=== PATIENT | female | born 1945 | race Caucasian/White ===

== ENCOUNTER 2018-01-11 18:04 | Observation (INO) | payer MEDICARE, BC ==
[~2018-01-11] VITALS: Ht 167.6 cm; Wt 102.2 kg
[2018-01-11 18:35] VITALS: BP 152/87; PULSE 69; RESP 16; TEMP 98; O2SAT 96
--- NOTE | 2018-01-11 19:06 | RADRPT ---
EXAM DATE/TIME: 01/11/2018 18:45 [facility] COMPARISON: No previous studies available for comparison. INDICATIONS : Right 3rd digit pain; finger closed in window. MEDICAL HISTORY : None. SURGICAL HISTORY : None. ENCOUNTER: Initial ACUITY: 1 day PAIN SCORE: 10/10 LOCATION: Right 3rd digit. FINDINGS: Examination of the third digit of the right hand demonstrates comminuted fracture distal phalanx thir d finger. No dislocation. CONCLUSION: 1. Comminuted fracture distal phalanx right third finger. Ganesh Valero MD on January 11, 2018 at 19:01 Board Certified Radiologist. This report was verified electronically.
[2018-01-11] MEDS ORDERED: LISI-515 PO (20:06)
[2018-01-11] MEDS ORDERED: ATOR40TA16 PO (20:06)
[2018-01-11] MEDS ORDERED: ASPI-183 PO (20:06)
[2018-01-11] MEDS ORDERED: ZANT150T2 PO (20:06)
[2018-01-11] MEDS ORDERED: METO25TA3 PO (20:06)
[2018-01-11] MEDS ORDERED: LEVO.1 PO (20:06)
[2018-01-11] MEDS ORDERED: NITR0.4S SL (20:06)
[2018-01-11] MEDS ORDERED: LIDOCAINE HCL 1% PF 30 ML VIAL INFIL ONE (20:15)
[2018-01-11] MEDS ORDERED: TETANUS/DIPHTHERIA TOXOID ADULT 0.5 ML VIAL IM ONE (20:15)
[2018-01-11] MEDS ORDERED: BUPIVACAINE HCL PF 0.5% 10 ML VIAL INFIL ONE (20:15)
[2018-01-11] MEDS ORDERED: AMPICILLIN-SULBACTAM INJ 1,500 MG in SODIUM CHLORIDE 0.9% INJ 100 ML IV ONE (20:15)
[2018-01-11 21:06] LABS: AUTOMATED NEUTROPHIL # 5.4 TH/MM3 (1.8-7.7); BASOPHIL % 0.5 % (0.0-2.0); EOSINOPHIL # 0.1 TH/MM3 (0-0.4); EOSINOPHIL % 1.5 % (0.0-4.0); HEMATOCRIT 40.5 % (35.0-46.0); HEMOGLOBIN 13.6 GM/DL (11.6-15.3); LYMPH % 20.9 % (9.0-44.0); LYMPHOCYTE # 1.6 TH/MM3 (1.0-4.8); MEAN CELL VOLUME 88.8 FL (80.0-100.0); MEAN CORPUSCULAR HEMOGLOBIN 29.9 PG (27.0-34.0); MEAN CORPUSCULAR HGB CONC 33.7 % (32.0-36.0); MEAN PLATELET VOLUME 9.8 FL (7.0-11.0); MONOCYTE # 0.6 TH/MM3 (0-0.9); NEUT % 69.1 % (16.0-70.0); PLATELET COUNT 226 TH/MM3 (150-450); RED BLOOD COUNT 4.55 MIL/MM3 (4.00-5.30); RED CELL DISTRIBUTION WIDTH 13.3 % (11.6-17.2); WHITE BLOOD COUNT 7.9 TH/MM3 (4.0-11.0)
[2018-01-11 21:41] LABS: BICARBONATE 27.9 MEQ/L (21.0-32.0); CALCIUM 9.2 MG/DL (8.5-10.1); MAGNESIUM 2.1 MG/DL (1.5-2.5)
[2018-01-11 21:44] VITALS: BP 165/73; PULSE 60; RESP 18; TEMP 98; O2SAT 92
--- NOTE | 2018-01-11 21:44 | PD ---
HPI Chief Complaint: Laceration/Skin Injury Time Seen by Provider: 20:06 Travel History International Travel<30 days: No Contact w/Intl Traveler<30days: No Traveled to known affect area: No History of Present Illness HPI 72-year-old female presents to the ED for evaluation of injury and laceration to her right middle finger. Patient reports that this have been couple hours before coming. Patient she was getting some stuff out of the car when her was going to go bead picker something else and will her hand was on the window her close to window on her finger. She has been having pain and swelling in the dorsal distal aspect of the finger since. She has a significant cut and what appears to be bone showing. She states that her pain is 7 out of 10. She is unsure of her last tetanus booster. She has allergies to azithromycin and oxycodone. Patient denies any other injuries. Per patient he has bleeding and pain in the distal aspect of the finger. Denies any numbness, tingling, weakness. No prior injuries. No blood thinner use. PFSH Past Medical History Blood Disorders: Yes (PE IVC FILTER IN PLACE) Cardiac Catheterization: Yes High Cholesterol: Yes Diminished Hearing: No Hypertension: Yes Myocardial Infarction: Yes Thyroid Disease: Yes Influenza Vaccination: Yes : 2 Para: 2 Past Surgical History Abdominal Surgery: Yes (UMBILICAL HERNIA) Coronary Stent: Yes Hysterectomy: Yes (PARTIAL) Social History Alcohol Use: Yes (SOCIAL) Tobacco Use: No Substance Use: No Allergies-Medications (Allergen,Severity, Reaction): Coded Allergies: azithromycin (Verified Allergy, Unknown, cramps, 01/11/18) oxycodone (Verified Allergy, Unknown, hellucinations, 01/11/18) Reported Meds & Prescriptions Reported Meds & Active Scripts Active Reported Aspirin 325 Mg Tab 325 Mg PO DAILY Nitrostat SL (Nitroglycerin) 0.4 Mg Subl 0.4 Mg SL DIRECTED PRN 1 tablet under the tongue as needed for chest pain. Repeat every 5 minutes for a total of 3 DOSES or call 911 if NO relief. Synthroid (Levothyroxine Sodium) 100 Mcg Tab 100 Mcg PO DAILY Zantac (Ranitidine HCl) 150 Mg Tab 150 Mg PO BID Metoprolol Tartrate 25 Mg Tab 25 Mg PO BID Lisinopril 20 Mg Tab 20 Mg PO DAILY Atorvastatin (Atorvastatin Calcium) 40 Mg Tab 40 Mg PO HS Review of Systems Except as stated in HPI: all other systems reviewed are Neg Physical Exam Narrative GENERAL: SKIN: Warm and dry. HEAD: Atraumatic. Normocephalic. EYES: Pupils equal and round. No scleral icterus. No injection or drainage. ENT: No nasal bleeding or discharge. Mucous membranes pink and moist. Tongue is midline. No uvula deviation. NECK: Trachea midline. No JVD. CARDIOVASCULAR: Regular rate and rhythm. No murmurs, S3, S4. RESPIRATORY: No accessory muscle use. Clear to auscultation. Breath sounds equal bilaterally. GASTROINTESTINAL: Abdomen soft, non-tender, nondistended. Hepatic and splenic margins not palpable. MUSCULOSKELETAL: Extremities without clubbing, cyanosis, or edema. No obvious deformities. Full range of motion of the upper and lower extremities bilaterally. Patient does have obvious deformity to the distal aspect of the right middle finger. Patient has cut about 2 cm in the dorsal aspect of the finger with bone showing and now avulsed. Nail still attached however the levels of the level of the nailbed. Good capillary refill. Sensation appears to be intact. NEUROLOGICAL: Awake and alert. No obvious cranial nerve deficits. Motor grossly within normal limits. Five out of 5 muscle strength in the arms and legs. Normal speech. PSYCHIATRIC: Appropriate mood and affect; insight and judgment normal. Data Data Last Documented VS Vital Signs Date Time Temp Pulse Resp B/P (MAP) Pulse Ox O2 Delivery O2 Flow Rate FiO2 01/11/18 21:44 98.0 60 18 165/73 (103) 92 Room Air Orders Orders Finger ([id number]) (01/11/18 ) Ampicillin-Sulbactam Inj (Unasyn Inj) (01/11/18 20:15) Lidocaine Pf 1% Inj (Xylocaine-Mpf 1% In (01/11/18 20:15) Wound Care (01/11/18 20:12) Tetanus/Diphtheria Tox Adult (Tetanus/Di (01/11/18 20:15) Bupivacaine Pf 0.5% Inj (Marcaine Pf 0.5 (01/11/18 20:15) Complete Blood Count With Diff (01/11/18 20:35) Basic Metabolic Panel (Bmp) (01/11/18 20:35) Prothrombin Time / Inr (Pt) (01/11/18 20:35) Act Partial Throm Time (Ptt) (01/11/18 20:35) Magnesium (Mg) (01/11/18 20:35) Splint Or Brace Apply/Monitor (01/11/18 20:36) Consult Hand Surgery (01/11/18 ) Consent (01/11/18 20:38) Npo After Midnight W/ Po Meds (01/12/18 Breakfast) (Hub Use Only)Inp Phy Cons/Ref (01/11/18 ) Admit Order (Ed Use Only) (01/11/18 22:14) Labs Laboratory Tests Test 01/11/18 20:05 White Blood Count 7.9 TH/MM3 Red Blood Count 4.55 MIL/MM3 Hemoglobin 13.6 GM/DL Hematocrit 40.5 % Mean Corpuscular Volume 88.8 FL Mean Corpuscular Hemoglobin 29.9 PG Mean Corpuscular Hemoglobin Concent 33.7 % Red Cell Distribution Width 13.3 % Platelet Count 226 TH/MM3 Mean Platelet Volume 9.8 FL Neutrophils (%) (Auto) 69.1 % Lymphocytes (%) (Auto) 20.9 % Monocytes (%) (Auto) 8.0 % Eosinophils (%) (Auto) 1.5 % Basophils (%) (Auto) 0.5 % Neutrophils # (Auto) 5.4 TH/MM3 Lymphocytes # (Auto) 1.6 TH/MM3 Monocytes # (Auto) 0.6 TH/MM3 Eosinophils # (Auto) 0.1 TH/MM3 Basophils # (Auto) 0.0 TH/MM3 CBC Comment DIFF FINAL Differential Comment Prothrombin Time 10.0 SEC Prothromb Time International Ratio 1.0 RATIO Activated Partial Thromboplast Time 24.7 SEC Blood Urea Nitrogen 16 MG/DL Creatinine 1.00 MG/DL Random Glucose 150 MG/DL Calcium Level 9.2 MG/DL Magnesium Level 2.1 MG/DL Sodium Level 141 MEQ/L Potassium Level 4.2 MEQ/L Chloride Level 106 MEQ/L Carbon Dioxide Level 27.9 MEQ/L Anion Gap 7 MEQ/L Estimat Glomerular Filtration Rate 55 ML/MIN MDM Medical Decision Making Medical Screen Exam Complete: Yes Emergency Medical Condition: Yes Medical Record Reviewed: Yes Interpretation(s) Last Impressions Finger X-Ray 01/11/18 0000 Signed Impressions: Service Date/Time: January 18:45 - CONCLUSION: 1. Comminuted fracture distal phalanx right third finger. Ganesh Valero MD CBC & BMP Diagram 01/11/18 20:05 Calcium Level 9.2, Magnesium Level 2.1 coags WNL Differential Diagnosis Fracture versus laceration versus abrasion versus open fracture Narrative Course 72-year-old female that presents to the ED for evaluation of laceration to the right middle finger. Patient was properly examined and was found to have signs and symptoms consistent appears to be orbital fracture. X-ray was done and showed comminuted fracture of the distal phalanx. Case was discussed with Dr. Ovalle who recommends admission to medicine, splint and states that if needed to keep the nail in place. This was discussed with the patient and family who are in agreement with admission plan. Patient was started on Unasyn and given tetanus booster. Please refer to procedure note. Patient will be admitted to Dr. Ramos who agrees with plan. Diagnosis Primary Impression: Open fracture of finger of right hand Qualified Codes: S62.632B - Displaced fracture of distal phalanx of right middle finger, initial encounter for open fracture Admitting Information Admitting Physician Requests: Observation Tamir Norton Jan 11, 2018 21:44
[2018-01-11] MEDS ORDERED: ONDANSETRON HCL 4 MG/2 ML VIAL IVP PRN (22:30)
[2018-01-11] MEDS ORDERED: BISACODYL 10 MG SUPP RECTAL PRN (22:30)
[2018-01-11] MEDS ORDERED: MAGNESIUM HYDROXIDE SUSP 30 ML CUP PO PRN (22:30)
[2018-01-11] MEDS ORDERED: SODIUM CHLORIDE 0.9% FLUSH 10 ML FLUSH IV FLUSH PRN (22:30)
[2018-01-11] MEDS ORDERED: SENNOSIDES 8.6 MG TAB PO PRN (22:30)
[2018-01-11] MEDS ORDERED: NALOXONE HCL 0.4 MG/ML AMP IV PUSH PRN (22:30)
[2018-01-11] MEDS ORDERED: ACETAMINOPHEN 325 MG TAB PO PRN (22:30)
[2018-01-11 23:23] VITALS: BP 203/79; PULSE 56; RESP 16; TEMP 97.3; O2SAT 98
[2018-01-12] VITALS (12 sets, daily range): BP systolic 147–184; BP diastolic 66–83; PULSE 53–76; RESP 14–18; TEMP 98–98.4; O2SAT 96–98
[2018-01-12] MEDS ORDERED: ENALAPRILAT 2.5 MG/2 ML VIAL IV PUSH ONE (01:00)
[2018-01-12] MEDS: AMPICILLIN-SULBACTAM INJ 1,500 MG in SODIUM CHLORIDE 0.9% INJ 100 ML IV SCH ×4 (03:07→22:07)
--- NOTE | 2018-01-12 04:03 | HHI.HP ---
[facility] Primary [facility] Physician Unknown Admission Diagnosis open comminuted right distal finger fracture Diagnoses: Travel History International Travel<30 Days: No Contact w/Intl Traveler <30 Da: No Traveled to Known Affected Are: No History of Present Illness 72-year-old female with a past medical history significant for coronary artery disease status post NE, hypertension, hyperlipidemia and hypothyroidism presents to the emergency department after having her finger stuck in a car window. The patient reports she was trying to pull the door closed with her simultaneously rolled up the window and her finger was consequently stock. She presented to the emergency department with an open fracture of the distal phalanx of the right third finger. The patient denies any pain at this time. Review of Systems Except as stated in HPI: all other systems reviewed are Neg Denies fever or chills Denies blurry vision, otorrhea, rhinorrhea Denies sore throat and cough No chest pain, palpitations No shortness of breath or wheezing No abdominal pain Denies constipation/diarrhea/nausea/vomiting Denies muscle pain Denies focal weakness No rashes Past Family Social History Past Medical History CAD status post NE Hypertension Hyperlipidemia Hypothyroidism Past Surgical History Stent 2 Left shoulder surgery Hysterectomy Hernia 2 Reported Medications Reported Meds & Active Scripts Active Reported Aspirin 325 Mg Tab 325 Mg PO DAILY Nitrostat SL (Nitroglycerin) 0.4 Mg Subl 0.4 Mg SL DIRECTED PRN 1 tablet under the tongue as needed for chest pain. Repeat every 5 minutes for a total of 3 DOSES or call 911 if NO relief. Synthroid (Levothyroxine Sodium) 100 Mcg Tab 100 Mcg PO DAILY Zantac (Ranitidine HCl) 150 Mg Tab 150 Mg PO BID Metoprolol Tartrate 25 Mg Tab 25 Mg PO BID Lisinopril 20 Mg Tab 20 Mg PO DAILY Atorvastatin (Atorvastatin Calcium) 40 Mg Tab 40 Mg PO HS Allergies: Coded Allergies: azithromycin (Verified Allergy, Unknown, cramps, 01/11/18) oxycodone (Verified Allergy, Unknown, hellucinations, 01/11/18) Family History Negative for CAD/DM Social History Occasional alcohol. Negative for tobacco and illicit drugs. Physical Exam Vital Signs Vital Signs Date Time Temp Pulse Resp B/P (MAP) Pulse Ox O2 Delivery O2 Flow Rate FiO2 01/12/18 03:03 58 174/75 (108) 01/12/18 01:25 53 01/12/18 01:03 55 01/12/18 00:43 60 184/83 (116) 01/11/18 23:23 97.3 56 16 203/79 (120) 98 01/11/18 23:09 01/11/18 21:44 98.0 60 18 165/73 (103) 92 Room Air 01/11/18 18:35 98.0 69 16 152/87 (108) 96 Physical Exam GENERAL: female lying in bed SKIN: No rashes, ecchymoses or lesions. Cool and dry. HEAD: Atraumatic. Normocephalic. No temporal or scalp tenderness. EYES: Pupils equal round and reactive. Extraocular motions intact. No scleral icterus. No injection or drainage. ENT: Nose without bleeding, purulent drainage or septal hematoma. Throat without erythema, tonsillar hypertrophy or exudate. Uvula midline. Airway patent. NECK: Trachea midline. No JVD or lymphadenopathy. Supple, nontender, no meningeal signs. CARDIOVASCULAR: Regular rate and rhythm without murmurs, gallops, or rubs. RESPIRATORY: Clear to auscultation. Breath sounds equal bilaterally. No wheezes , rales, or rhonchi. GASTROINTESTINAL: Abdomen soft, non-tender, nondistended. No hepato-splenomegaly , or palpable masses. No guarding. MUSCULOSKELETAL: Extremities without clubbing, cyanosis, or edema. Third digit of the right hand dressed. Dressing clean/dry/intact. NEUROLOGICAL: Awake and alert. Cranial nerves II through XII intact. Motor and sensory grossly within normal limits. Normal speech. Laboratory Laboratory Tests Test 01/11/18 20:05 White Blood Count 7.9 Red Blood Count 4.55 Hemoglobin 13.6 Hematocrit 40.5 Mean Corpuscular Volume 88.8 Mean Corpuscular Hemoglobin 29.9 Mean Corpuscular Hemoglobin Concent 33.7 Red Cell Distribution Width 13.3 Platelet Count 226 Mean Platelet Volume 9.8 Neutrophils (%) (Auto) 69.1 Lymphocytes (%) (Auto) 20.9 Monocytes (%) (Auto) 8.0 Eosinophils (%) (Auto) 1.5 Basophils (%) (Auto) 0.5 Neutrophils # (Auto) 5.4 Lymphocytes # (Auto) 1.6 Monocytes # (Auto) 0.6 Eosinophils # (Auto) 0.1 Basophils # (Auto) 0.0 CBC Comment DIFF FINAL Differential Comment Prothrombin Time 10.0 Prothromb Time International Ratio 1.0 Activated Partial Thromboplast Time 24.7 Blood Urea Nitrogen 16 Creatinine 1.00 Random Glucose 150 Calcium Level 9.2 Magnesium Level 2.1 Sodium Level 141 Potassium Level 4.2 Chloride Level 106 Carbon Dioxide Level 27.9 Anion Gap 7 Estimat Glomerular Filtration Rate 55 Result Diagram: 01/11/18200401/11/182004 Caprini VTE Risk Assessment Caprini VTE Risk Assessment: Mod/High Risk (score >= 2) Caprini Risk Assessment Model Point Value = 1 Point Value = 2 Point Value = 3 Point Value = 5 Age 41-60 Minor surgery BMI > 25 kg/m2 Swollen legs Varicose veins or History of unexplained or recurrent spontaneous Oral contraceptives or hormone replacement Sepsis (< 1 month) Serious lung disease, including pneumonia (< 1 month) Abnormal pulmonary function Acute myocardial infarction Congestive heart failure (< 1 month) History of inflammatory bowel disease Medical patient at bed rest Age 61-74 Arthroscopic surgery Major open surgery (> 45 min) Laparoscopic surgery (> 45 min) Malignancy Confined to bed (> 72 hours) Immobilizing plaster cast Central venous access Age >= 75 History of VTE Family history of VTE Factor V Leiden Prothrombin [id number] Lupus anticoagulant Anticardiolipin antibodies Elevated serum homocysteine Heparin-induced thrombocytopenia Other congenital or acquired thrombophilia Stroke (< 1 month) Elective arthroplasty Hip, pelvis, or leg fracture Acute spinal cord injury (< 1 month) Prophylaxis Regimen Total Risk Factor Score Risk Level Prophylaxis Regimen 0-1 Low Early ambulation 2 Moderate Order ONE of the following: *Sequential Compression Device (SCD) *Heparin 5000 units SQ BID 3-4 Higher Order ONE of the following medications: *Heparin 5000 units SQ TID *Enoxaparin/Lovenox 40 mg SQ daily (WT < 150 kg, CrCl > 30 mL/min) *Enoxaparin/Lovenox 30 mg SQ daily (WT < 150 kg, CrCl > 10-29 mL/min) *Enoxaparin/Lovenox 30 mg SQ BID (WT < 150 kg, CrCl > 30 mL/min) AND/OR *Sequential Compression Device (SCD) 5 or more Highest Order ONE of the following medications: *Heparin 5000 units SQ TID (Preferred with Epidurals) *Enoxaparin/Lovenox 40 mg SQ daily (WT < 150 kg, CrCl > 30 mL/min) *Enoxaparin/Lovenox 30 mg SQ daily (WT < 150 kg, CrCl > 10-29 mL/min) *Enoxaparin/Lovenox 30 mg SQ BID (WT < 150 kg, CrCl > 30 mL/min) AND *Sequential Compression Device (SCD) Assessment and Plan Assessment and Plan Assessment/plan: 1. Distal phalanx fracture X-ray of the finger significant for comminuted fracture distal phalanx right third finger Hand surgery consulted, appreciate recommendations Unasyn 2. Hypertension/hyperlipidemia Continue home medications 3. CAD Holding aspirin for possible surgical intervention 4. Hypothyroidism Continue home Synthroid FEN NPO Electrolytes: monitor and replete prn Holding pharmacologic anticoagulation for possible surgical intervention NS at 100 cc/hr Sheila Ramos MD Jan 12, 2018 04:03
[2018-01-12] MEDS: LEVOTHYROXINE SODIUM 100 MCG TAB PO SCH (05:03)
[2018-01-12] MEDS: SODIUM CHLOR 0.9% 1000 ML INJ 1,000 ML IV SCH ×2 (05:07→14:00)
[2018-01-12] MEDS ORDERED: POVIDONE IODINE 5% (ANTISEPSIS KIT) 4 APPLICATIONS EACH NARE PRN (05:45)
[2018-01-12] MEDS ORDERED: CHLORHEXIDINE GLUCONATE 2 % 1 PACK (2 CLOTHS) TOPICAL PRN (05:45)
[2018-01-12] MEDS ORDERED: SODIUM CHLORID 0.9% 500 ML IV PRN (05:45)
[2018-01-12] MEDS ORDERED: LACTATED RINGER'S 1000 ML IV PRN (05:45)
[2018-01-12] MEDS: FAMOTIDINE 20 MG TAB PO SCH ×2 (08:29→22:07)
[2018-01-12] MEDS: MORPHINE SULFATE 2 MG/ML SYRINGE IV PUSH PRN ×3 (08:30→22:10)
[2018-01-12] MEDS: METOPROLOL TARTRATE 25 MG TAB PO SCH ×2 (08:31→22:08)
[2018-01-12] MEDS: LISINOPRIL 20 MG TAB PO SCH (08:31)
[2018-01-12] MEDS: SODIUM CHLORIDE 0.9% FLUSH 10 ML FLUSH IV FLUSH SCH ×2 (09:00→21:00)
[2018-01-12] MEDS ORDERED: NON-FORMULARY DRUG (Ranitidine (Zantac) 150 MG) PO SCH (09:00)
[2018-01-12 11:34] LABS: AUTOMATED NEUTROPHIL # 5.1 TH/MM3 (1.8-7.7); BASOPHIL % 0.4 % (0.0-2.0); EOSINOPHIL # 0.1 TH/MM3 (0-0.4); EOSINOPHIL % 1.6 % (0.0-4.0); HEMATOCRIT 37.5 % (35.0-46.0); HEMOGLOBIN 12.6 GM/DL (11.6-15.3); LYMPH % 22.5 % (9.0-44.0); LYMPHOCYTE # 1.7 TH/MM3 (1.0-4.8); MEAN CELL VOLUME 89.1 FL (80.0-100.0); MEAN CORPUSCULAR HEMOGLOBIN 29.8 PG (27.0-34.0); MEAN CORPUSCULAR HGB CONC 33.5 % (32.0-36.0); MEAN PLATELET VOLUME 9.1 FL (7.0-11.0); MONO % 6.7 % (0.0-8.0); MONOCYTE # 0.5 TH/MM3 (0-0.9); NEUT % 68.8 % (16.0-70.0); PLATELET COUNT 186 TH/MM3 (150-450); RED BLOOD COUNT 4.21 MIL/MM3 (4.00-5.30); RED CELL DISTRIBUTION WIDTH 13.5 % (11.6-17.2); WHITE BLOOD COUNT 7.4 TH/MM3 (4.0-11.0)
[2018-01-12] MEDS ORDERED: ceFAZolin INJ 1,000 MG VIAL IV ONE ×2 (12:00→14:03)
[2018-01-12] MEDS ORDERED: ePHEDrine/NS 25 MG/5 ML SYRINGE IV ONE (12:00)
[2018-01-12] MEDS ORDERED: PROPOFOL 200 MG/20 ML AMP IV ONE (12:00)
[2018-01-12] MEDS ORDERED: ONDANSETRON HCL 4 MG/2 ML VIAL IV PUSH ONE (12:00)
[2018-01-12] MEDS ORDERED: LIDOCAINE HCL 1% PF 5 ML SYRINGE OTHER ONE (12:00)
[2018-01-12] MEDS ORDERED: PHENYLEPH/NS 1000 MCG/10 ML SYR IV ONE (12:00)
[2018-01-12] MEDS ORDERED: NEOMYCIN/POLYMYXIN 1 ML G.U. IRRIGANT ONE (12:15)
[2018-01-12 12:23] LABS: BICARBONATE 29.4 MEQ/L (21.0-32.0); CALCIUM 8.7 MG/DL (8.5-10.1)
[2018-01-12 12:24] LABS: CREATININE 0.72 MG/DL (0.50-1.00)
[2018-01-12] MEDS ORDERED: DO NOT ADM ANY ANTICOAGULANT DRUGS PRN (14:38)
[2018-01-12] MEDS ORDERED: MIDAZOLAM HCL 2 MG/2 ML VIAL ONE (14:46)
--- NOTE | 2018-01-12 14:58 | PD.ORT.PN ---
Subjective Subjective Remarks Patient comfortable in PACU. Objective Vitals Vital Signs Date Time Temp Pulse Resp B/P (MAP) Pulse Ox O2 Delivery O2 Flow Rate FiO2 01/12/18 08:09 98.0 64 14 153/68 (96) 98 01/12/18 07:10 62 01/12/18 05:27 98.1 57 16 147/68 (94) 96 01/12/18 03:03 58 174/75 (108) 01/12/18 01:25 53 01/12/18 01:03 55 01/12/18 00:43 60 184/83 (116) 01/11/18 23:23 97.3 56 16 203/79 (120) 98 01/11/18 23:09 01/11/18 21:44 98.0 60 18 165/73 (103) 92 Room Air 01/11/18 18:35 98.0 69 16 152/87 (108) 96 I/O 01/11/18 01/11/18 01/11/18 01/12/18 01/12/18 01/12/18 07:00 15:00 23:00 07:00 15:00 23:00 Intake Total 100 ml 800 ml Output Total 5 ml Balance 100 ml 795 ml Intake IV Total 100 ml 800 ml Output Estimated Blood Loss 5 ml Result Diagram: 01/12/18 1113 01/12/18 1113 Other Results Laboratory Tests Test 01/11/18 20:05 Prothromb Time International Ratio 1.0 RATIO Prothrombin Time 10.0 SEC (9.8-11.6) Objective Remarks Dressing in place, <2 sec capillary refill to finger Assessment & Plan Assessment and Plan 72yF POD0 s/p I&D right middle finger, nail bedrepair, open reduction right middle finger -Okay to discharge per hand surgery, followup monday -Please discharge on oral antibiotics -Okay for patient to change splint Mallory Ovalle MD Jan 12, 2018 14:58
--- NOTE | 2018-01-12 15:17 | MB ---
cc: Mallory Ovalle MD DATE: 01/12/2018 REASON FOR CONSULTATION: Right middle finger fracture. HISTORY OF PRESENT ILLNESS: Rosibel Daniels is a 72-year-old right-hand dominant female, who lives in [facility], who is visiting and traveling up the [facility]. States that she and her were shopping yesterday. In the parking lot, the window to the car accidentally crushed her right middle finger, sustaining a laceration of her right middle finger. She presents for evaluation. She is currently a retired physical therapist. She denies any prior significant injuries to the right hand. She does report pain and paresthesias over the right middle finger. PAST MEDICAL HISTORY: Coronary artery disease, status post myocardial infarction, hypertension, hypothyroidism. PAST SURGICAL HISTORY: Stent, hernia repair. MEDICATIONS: Aspirin, Synthroid, metoprolol, lisinopril, atorvastatin. ALLERGIES: AZITHROMYCIN, OXYCODONE. SOCIAL HISTORY: The patient denies tobacco, alcohol or drug use. PHYSICAL EXAMINATION: VITAL SIGNS: Stable. GENERAL: The patient alert and oriented. EXTREMITIES: Dressing in place over the right middle finger. The patient does have less than 2 second capillary refill to the tip of the finger. Sensation present to the tip of the finger. The dressing was not removed until in the operating room. I had reviewed pictures from the emergency room, which showed a laceration through the nail bed with exposed bone. DIAGNOSTIC DATA: X-rays of the right middle finger show a displaced open distal phalanx fracture of the right middle finger. ASSESSMENT AND PLAN: A 72-year-old female with an open displaced fracture of the right middle finger distal phalanx as well as a nail bed injury. Treatment options discussed with the patient. She elected to proceed with admission, antibiotics and surgical intervention at the earliest available time. She elected to proceed. Risks were explained, not limited to wound complication, infection, nail deformity, stiffness, pain, paresthesias, and she elected to proceed. The patient will be traveling up the [facility] and then returning to [place]. I will place absorbable sutures, and I am happy to see her on Monday and then will arrange followup as needed. Mallory Ovalle MD [facility]/AURELIO Reyes: 01/12/2018, 03:01 PM , 03:17 PM [facility]
--- NOTE | 2018-01-12 15:24 | MP ---
cc: Mallory Ovalle MD DATE OF OPERATION: 01/12/2018 DATE OF PROCEDURE: 01/12/2018 PREOPERATIVE DIAGNOSES: 1. Open displaced fracture, right middle finger distal phalanx. 2. Nail bed laceration, right middle finger. POSTOPERATIVE DIAGNOSES: 1. Open displaced fracture, right middle finger distal phalanx. 2. Nail bed laceration, right middle finger. PROCEDURE PERFORMED: 1. Irrigation and debridement, open fracture including skin and subcutaneous tissue, muscle and bone, right middle finger. 2. Open reduction, right middle finger distal phalanx. 3. Nail bed repair, right middle finger. 4. Interpretation of fluoroscopy, right middle finger. SURGEON: Mallory Ovalle MD ANESTHESIA: General and local. TOURNIQUET: None. IMPLANTS: None. INDICATIONS FOR PROCEDURE: Rosibel Daniels is a pleasant 72-year-old right hand dominant female with an open displaced fracture of the right middle finger distal phalanx. She elected to proceed with surgical intervention. She also sustained a nail bed laceration. Risks were explained including but not limited to wound complications infection, nail deformity, nonunion, malunion, stiffness, pain and she elected to proceed. DESCRIPTION OF PROCEDURE: The patient was identified in the preoperative holding area and the correct extremity was marked. The patient was taken to the operating room where anesthesia was induced. The right upper extremity was prepped and draped in normal sterile fashion. The nail plate was removed. The open fracture was irrigated and debrided with antibiotic saline, including curettes and rongeurs, the bone was debrided. Then, open reduction was performed. The nail bed itself was repaired with a 5-0 chromic. The skin edges were closed with a 4-0 chromic. Throughout the procedure, the patient had less than 2 second capillary refill to the finger. AP and lateral x-rays of the right middle finger were reviewed by the surgeon throughout the procedure, which showed significant improvement in the alignment of the right middle finger distal phalanx fracture. The nail plate was sutured in place as a splint. The patient was placed into a splint. Approximately 6 mL of 2% lidocaine with no epinephrine was used to performed a digital block over the finger. The patient will be discharged on oral antibiotics. I will be happy to see the patient on Monday and then she will be traveling and we will arrange followup as needed. MD SOUMYA Campbell , 03:03 PM , 03:23 PM [facility]
--- NOTE | 2018-01-12 16:15 | RADRPT ---
EXAM DATE/TIME: 01/12/2018 15:56 [facility] COMPARISON: FINGER RIGHT 3RD DIGIT ([id number]), January 11, 2018, 18:45. INDICATIONS : Status post re alignment in OR after closing finger in window. MEDICAL HISTORY : None. SURGICAL HISTORY : None. ENCOUNTER: Subsequent ACUITY: 1 day PAIN SCORE: 4/10 LOCATION: Right Hand, 3rd digit FINDINGS: Examination of the third digit of the right hand demonstrates some realignment of the comminuted frac ture fragments of the distal diaphysis and tuft of the distal phalanx of the third ray. There is sti ll a proximally one half bone thickness palmar displacement of the distal fragment, however CONCLUSION: Some realignment of the severely comminuted fractures through the distal diaphysis and tuft of t he distal phalanx of the third ray as above. Sacha De Leon MD on January 12, 2018 at 16:10 Board Certified Radiologist. This report was verified electronically.
[2018-01-12] MEDS ORDERED: CEPH-460 PO (18:47)
[2018-01-12] MEDS ORDERED: ATORVASTATIN 40 MG TAB PO SCH (21:00)
[2018-01-13] MEDS: SODIUM CHLOR 0.9% 1000 ML INJ 1,000 ML IV SCH
[2018-01-13 00:17] VITALS: BP 120/78; PULSE 60; RESP 20; TEMP 96.2; O2SAT 97
[2018-01-13] MEDS: MORPHINE SULFATE 2 MG/ML SYRINGE IV PUSH PRN ×2 (02:44→06:53)
[2018-01-13] MEDS: AMPICILLIN-SULBACTAM INJ 1,500 MG in SODIUM CHLORIDE 0.9% INJ 100 ML IV SCH ×2 (02:46→09:53)
[2018-01-13] MEDS: LEVOTHYROXINE SODIUM 100 MCG TAB PO SCH (06:12)
[2018-01-13 07:22] VITALS: BP 137/62; PULSE 58; RESP 18; TEMP 98.1; O2SAT 98
[2018-01-13 08:06] VITALS: PULSE 58
[2018-01-13] MEDS ORDERED: HYDR-3516 PO (08:51)
[2018-01-13] MEDS ORDERED: IBUP1TAB5 PO (08:51)
[2018-01-13] MEDS ORDERED: ACETAMINOPHEN/HYDROcodone 325 MG/5 MG TAB PO PRN (09:00)
[2018-01-13] MEDS: METOPROLOL TARTRATE 25 MG TAB PO SCH (09:00)
[2018-01-13] MEDS ORDERED: IBUPROFEN 400 MG TAB PO SCH (09:00)
[2018-01-13] MEDS: FAMOTIDINE 20 MG TAB PO SCH (09:49)
[2018-01-13] MEDS: LISINOPRIL 20 MG TAB PO SCH (09:50)
[2018-01-13] MEDS: SODIUM CHLORIDE 0.9% FLUSH 10 ML FLUSH IV FLUSH SCH (09:53)
--- NOTE | 2018-01-13 10:45 | HHI.PR ---
Subjective Remarks Follow-up visit open comminuted right distal finger fracture. Patient seen and examined today. Reports she is doing well. Right middle finger with splint in place. States [place] and not go home to [place] yet for at least a month. Denies pain and discomfort. Denies SOB/ dyspnea. Denies chest pain, palpitations, headaches, dizziness. Denies fevers, chills, n/v/d. Denies dysuria. Objective Vitals Vital Signs Date Time Temp Pulse Resp B/P (MAP) Pulse Ox O2 Delivery O2 Flow Rate FiO2 01/13/18 08:06 58 01/13/18 07:22 98.1 58 18 137/62 (87) 98 01/13/18 00:17 96.2 60 20 120/78 (92) 97 01/12/18 23:05 59 01/12/18 19:20 98.4 56 18 148/66 (93) 96 01/12/18 17:45 64 01/12/18 17:35 98.1 76 16 152/66 (94) 98 01/12/18 15:00 62 16 146/67 (93) 94 Room Air 01/12/18 14:45 68 16 137/65 (89) 94 Room Air 01/12/18 14:36 97.5 72 16 151/67 (95) 98 01/12/18 12:15 53 I/O 01/12/18 01/12/18 01/12/18 01/13/18 01/13/18 01/13/18 07:00 15:00 23:00 07:00 15:00 23:00 Intake Total 820 ml Output Total 5 ml Balance 815 ml Intake IV Total 820 ml Output Estimated Blood Loss 5 ml Result Diagram: 01/12/18 1113 01/12/18 1113 Imaging Last Impressions Finger X-Ray 01/12/18 0000 Signed Impressions: Service Date/Time: Friday, January 12, 2018 15:56 - CONCLUSION: Some realignment of the severely comminuted fractures through the distal diaphysis and tuft of the distal phalanx of the third ray as above. Sacha De Leon MD Objective Remarks GENERAL: This is a well-nourished, well-developed patient, in no apparent distress. SKIN: Warm and dry. HEENT: Normocephalic. Pupils equal round and reactive. Nose without bleeding. Airway patent. NECK: Trachea midline. No JVD. Supple. CARDIOVASCULAR: Regular rate and rhythm without murmurs, gallops, or rubs. RESPIRATORY: Clear to auscultation. Breath sounds equal bilaterally. No wheezes , rales, or rhonchi. GASTROINTESTINAL: Abdomen soft, non-tender, nondistended. Bowel Sounds normoactive x4. MUSCULOSKELETAL: Extremities without clubbing, cyanosis. Right distal finger fracture with splint and Kwesi wrap in place. NEUROLOGICAL: Awake and alert. Oriented to time, place, person. No focal neuro deficit. Moves all extremities. Normal speech. Procedures s/p I&D right middle finger, nail bedrepair, open reduction right middle finger A/P Assessment and Plan 72-year-old female with a past medical history significant for coronary artery disease status post NE, hypertension, hyperlipidemia and hypothyroidism presents to the emergency department after having her finger stuck in a car window. Distal phalanx fracture -X-ray of the finger significant for comminuted fracture distal phalanx right third finger -Hand surgery consulted, appreciate recommendations -s/p I&D right middle finger, nail bedrepair, open reduction right middle finger -IV Unasyn for now. Switch over to Keflex when discharged -Follow-up with hand surgery HTN HLD CAD -Continue with home medication -Restart aspirin once discharge Hypothyroidism -Continue home medication levothyroxine DVT prop SCDs Discharge Planning Cleared by hand surgery. Plan to DC home today follow-up with hand surgery. Calvin Gutierres Jan 13, 2018 10:45
--- NOTE | 2018-01-13 10:45 | HHI.DCPOC ---
Discharge Care Plan Diagnosis: (1) Open fracture of finger of right hand Your Health Problems Are: Inflammation Swelling Goals to Promote Your Health * To prevent worsening of your condition and complications * To maintain your health at the optimal level Directions to Meet Your Goals Take your medications as prescribed Follow your dietary instruction Follow activity as directed Keep your appointments as scheduled Take your immunizations and boosters as scheduled If your symptoms worsen call your PCP, if no PCP go to Urgent Care Center or Emergency Room Smoking is Dangerous to Your Health. Avoid second hand smoke Call the 24-hour hour crisis hotline for domestic abuse at Calvin Gutierres [facility] Jan 13, 2018 10:45
[2018-01-13 11:09] VITALS: BP 130/62; PULSE 58; RESP 18; TEMP 97.6; O2SAT 96
--- NOTE | 2018-01-13 11:56 | HHI.DS ---
Discharge Summary Admission Date Jan 11, 2018 at 22:15 Discharge Date: Jan 13, 2018 Admitting Diagnosis open comminuted right distal finger fracture (1) Open fracture of finger of right hand ICD Code: S62.609B - Fracture of unspecified phalanx of unspecified finger, initial encounter for open fracture Status: Acute Procedures s/p I&D right middle finger, nail bedrepair, open reduction right middle finger Brief History - From Admission 72-year-old female with a past medical history significant for coronary artery disease status post MT, hypertension, hyperlipidemia and hypothyroidism presents to the emergency department after having her finger stuck in a car window. The patient reports she was trying to pull the door closed with her simultaneously rolled up the window and her finger was consequently stock. She presented to the emergency department with an open fracture of the distal phalanx of the right third finger. The patient denies any pain at this time. CBC/BMP: 01/12/18 1113 01/12/18 1113 Significant Findings Laboratory Tests Test 01/11/18 20:05 01/12/18 11:13 Random Glucose 150 MG/DL (74-106) 144 MG/DL (74-106) Estimat Glomerular Filtration Rate 55 ML/MIN (>89) 80 ML/MIN (>89) Chloride Level 108 MEQ/L (98-107) Imaging Last Impressions Finger X-Ray 01/12/18 0000 Signed Impressions: Service Date/Time: Friday, January 12, 2018 15:56 - CONCLUSION: Some realignment of the severely comminuted fractures through the distal diaphysis and tuft of the distal phalanx of the third ray as above. Sacha De Leon MD PE at Discharge GENERAL: This is a well-nourished, well-developed patient, in no apparent distress. SKIN: Warm and dry. HEENT: Normocephalic. Pupils equal round and reactive. Nose without bleeding. Airway patent. NECK: Trachea midline. No JVD. Supple. CARDIOVASCULAR: Regular rate and rhythm without murmurs, gallops, or rubs. RESPIRATORY: Clear to auscultation. Breath sounds equal bilaterally. No wheezes , rales, or rhonchi. GASTROINTESTINAL: Abdomen soft, non-tender, nondistended. Bowel Sounds normoactive x4. MUSCULOSKELETAL: Extremities without clubbing, cyanosis. Right distal finger fracture with splint and Kwesi wrap in place. NEUROLOGICAL: Awake and alert. Oriented to time, place, person. No focal neuro deficit. Moves all extremities. Normal speech. Pt update on day of discharge Follow-up visit open comminuted right distal finger fracture. Patient seen and examined today. Reports she is doing well. Right middle finger with splint in place. States she [place] be [place] and not go home to [place] yet for at least a month. Denies pain and discomfort. Denies SOB/ dyspnea. Denies chest pain, palpitations, headaches, dizziness. Denies fevers, chills, n/v/d. Denies dysuria. Hospital Course 72-year-old female with a past medical history significant for coronary artery disease status post MT, hypertension, hyperlipidemia and hypothyroidism presents to the emergency department after having her finger stuck in a car window. Patient was found to have finger significant comminuted fracture distal phalanx right third finger. Hand surgery was consulted. Patient underwent I&D right middle finger, nailbed repair, open reduction right middle finger. She was on IV Unasyn and will be discharged on Keflex p.o. follow-up with hand surgeon on Monday. Patient has met maximal benefits of hospitalization. Clinically stable for discharge. Pt Condition on Discharge: Stable Discharge Disposition: Discharge Home Discharge Time: <= 30 minutes Discharge Instructions DIET: Follow Instructions for: Heart Healthy Diet Activities you can perform: Regular-No Restrictions, See Additionl Instruction Activities to Avoid: Driving for 24 hrs Other Activity Instructions: do not use affected hand Follow up Referrals: Hand Surgery - 2-3 Days with Mallory Ovalle MD PCP Follow-up - 1 Week New Medications: Cephalexin (Keflex) 500 Mg Capsule 500 MG PO Q8H for Infection for 10 Days, #30 CAP 0 Refills Hydrocodone/Acetaminophen (Hydrocodone-Acetamin 5-325 mg) 5 Mg-325 Mg Tablet 1 TAB PO Q4H PRN for Pain 5-10, #15 TAB Ibuprofen (Ibuprofen) 400 Mg Tab 400 MG PO TID for PAIN/ Swelling for 5 Days, #15 TAB Take with Food Continued Medications: Aspirin (Aspirin) 325 Mg Tab 325 MG PO DAILY, #30 TAB 0 Refills Atorvastatin (Atorvastatin) 40 Mg Tab 40 MG PO HS for Cholesterol Management, #30 TAB 0 Refills Levothyroxine (Synthroid) 100 Mcg Tab 100 MCG PO DAILY for Thyroid, #30 TAB 0 Refills Lisinopril (Lisinopril) 20 Mg Tab 20 MG PO DAILY, #30 TAB 0 Refills Metoprolol Tartrate (Metoprolol Tartrate) 25 Mg Tab 25 MG PO BID, #60 TAB 0 Refills Nitroglycerin SL (Nitrostat SL) 0.4 Mg Subl 0.4 MG SL DIRECTED PRN for CHEST PAIN, #100 TAB.SL 0 Refills 1 tablet under the tongue as needed for chest pain. Repeat every 5 minutes for a total of 3 DOSES or call 911 if NO relief. Ranitidine (Zantac) 150 Mg Tab 150 MG PO BID for Reduce Stomach Acid, #60 TAB 0 Refills Calvin Gutierres [facility] Jan 13, 2018 11:56
--- NOTE | 2018-01-13 17:19 | EKG ---
Date Performed: 01/12/2018 Time Performed: 13:14:18 PTAGE: 72 years EKG: SINUS BRADYCARDIA LOW QRS VOLTAGE IN PRECORDIAL LEADS POSSIBLE INFEROPOSTERIOR WALL MYOCARD IAL INFARCTION , OF UNDETERMINED AGE Clinical correlation is recommended BORDERLINE ECG NO PREVIOUS TRACING DOCTOR: Arjun Schneider Interpretating Date/Time 01/13/2018 17:18:47
== END 2018-01-13 13:07 | disposition home or self-care (01) ==
LOC: NEPE 18:04 → NEDA 22:15 → NEPGCP 23:18
PROVIDERS: ADMIT Hospitalist; ATTEND Hospitalist
DX: S62.632B Displaced fracture of distal phalanx of right middle finger, initial encounter for open fracture (principal); I10 Essential (primary) hypertension; I25.10 Atherosclerotic heart disease of native coronary artery without angina pectoris; R94.31 Abnormal electrocardiogram [ECG] [EKG]; E78.5 Hyperlipidemia, unspecified; E78.00 Pure hypercholesterolemia, unspecified; E03.9 Hypothyroidism, unspecified; I25.2 Old myocardial infarction; Z79.82 Long term (current) use of aspirin; Z88.1 Allergy status to other antibiotic agents; Z90.710 Acquired absence of both cervix and uterus; W25.XXXA Contact with sharp glass, initial encounter; Y92.481 Parking lot as the place of occurrence of the external cause
CPT/HCPCS: 01830; 11044; 11760; 26765; 73140; 76000; 80048; 83735; 85025; 85610; 85730; 90471; 90714; 93005; 96361; 96365; 96366; 96375; 96376; 99285; G0378; J0295; J0690; J2250; J2270; J2370; J2405; J3010; J7030